=== PATIENT | male | born 1975 | race Two or more races ===

== ENCOUNTER 2020-11-20 12:29 | Emergency (ER) | payer SELFPAY ==
[~2020-11-20] VITALS: Ht 172.7 cm; Wt 79.4 kg
[2020-11-20 12:31] VITALS: BP 107/48
== END 2020-11-20 13:51 | disposition home or self-care (01) ==
LOC: ER 12:29
DX: H00.034 Abscess of left upper eyelid (principal); H00.014 Hordeolum externum left upper eyelid; F17.210 Nicotine dependence, cigarettes, uncomplicated
CPT/HCPCS: 65220; 67700

== ENCOUNTER 2021-01-21 14:21 | Emergency (ER) | payer MEDICAID ==
[~2021-01-21] VITALS: Ht 172.7 cm; Wt 81.6 kg
[2021-01-21] MEDS ORDERED: KETOROLAC TROMETH 60MG/2ML VIAL IM ONE (16:00)
[2021-01-21 16:25] VITALS: BP 134/81
== END 2021-01-21 18:06 | disposition home or self-care (01) ==
LOC: ER 14:21 → EDBD 14:21 → ER 18:06
DX: S39.012A Strain of muscle, fascia and tendon of lower back, initial encounter (principal); S50.11XA Contusion of right forearm, initial encounter; V43.52XA Car driver injured in collision with other type car in traffic accident, initial encounter; Y93.89 Activity, other specified; Y92.488 Other paved roadways as the place of occurrence of the external cause; Y99.8 Other external cause status
CPT/HCPCS: 72100; 73090; 96372; 99284; J1885

== ENCOUNTER 2022-02-25 13:32 | Emergency (ER) | payer MEDICAID ==
[~2022-02-25] VITALS: Ht 170.2 cm; Wt 77.1 kg
[2022-02-25 14:50] VITALS: BP 115/69
[2022-02-25] MEDS ORDERED: DICL500C76 PO (14:53)
[2022-02-25] MEDS ORDERED: NAPR500T31 PO (14:53)
== END 2022-02-25 15:12 | disposition home or self-care (01) ==
LOC: ER 13:32
DX: L73.8 Other specified follicular disorders (principal); F17.210 Nicotine dependence, cigarettes, uncomplicated; F12.10 Cannabis abuse, uncomplicated